=== PATIENT | male | born 1950 | race Caucasian/White ===

== ENCOUNTER 2017-08-14 13:26 | Emergency (ER) | payer MEDICARE, BC ==
[2017-08-14 13:39] VITALS: BP 161/65; PULSE 75; RESP 18; TEMP 98.3; O2SAT 99
[2017-08-14 14:11] LABS: APPEARANCE,URINE CLOUDY; COLOR,URINE RED
[2017-08-14 14:12] LABS: BILIRUBIN,URINE 2+ (NEGATIVE); GLUCOSE, URINE (UA) NEGATIVE (NEGATIVE); KETONES,URINE 1+ (NEGATIVE); LEUKOCYTE ESTERASE ,URINE 1+ (NEGATIVE); NITRATE,URINE NEGATIVE (NEGATIVE); OCCULT BLOOD,URINE 3+ (NEG-TRACE); RBC,URINE TNTC (0-3AV/HPF); UROBILINOGEN,URINE NORMAL (0.2-1.0 EU)
[2017-08-14 14:16] LABS: ICTOTEST,URINE NEGATIVE (NEGATIVE)
== END 2017-08-14 14:57 | disposition home or self-care (01) | DRG 696 ==
LOC: ED 13:26
DX: R31.0 Gross hematuria (principal); R30.0 Dysuria
CPT/HCPCS: 81001; 99282

== ENCOUNTER 2018-02-20 18:26 | Observation (INO) | payer MEDICARE, BC ==
[2018-02-20] MEDS ORDERED: LIDOCAINE HCL 2% GEL TOP ONE (22:04)
[2018-02-20] MEDS ORDERED: LIDOCAINE HCL 2% (VISCOUS) 20 ML SOL MT ONE (22:04)
[2018-02-20] MEDS ORDERED: LIDOCAINE HCL 2% (VISCOUS) 20 ML SOL ONE (22:05)
[2018-02-20] MEDS ORDERED: TADALAFIL 20 MG PO PRN (22:51)
[2018-02-20] MEDS ORDERED: OXYBUTYNIN CHLORIDE 5 MG TAB PO ONE (23:00)
[2018-02-20] MEDS ORDERED: SODIUM CHLORIDE 0.9% FLUSH 10 ML SOL IV SCH (23:00)
[2018-02-21 00:28] VITALS: TEMP 98.3
[2018-02-21 08:45] VITALS: BP 155/100; PULSE 112; RESP 20; O2SAT 96
[2018-02-21] MEDS ORDERED: OXYBUTYNIN CHLORIDE 5 MG TAB PO SCH (09:00)
[2018-02-21] MEDS ORDERED: SIMVASTATIN 20 MG PO SCH (21:00)
== END 2018-02-21 08:55 | disposition short-term general hospital (02) | DRG 696 ==
LOC: ED 18:26 → ACUTE CARE 22:39
PROVIDERS: ADMIT Emergency Medicine; ATTEND Emergency Medicine
DX: R31.9 Hematuria, unspecified (principal); N40.0 Benign prostatic hyperplasia without lower urinary tract symptoms
CPT/HCPCS: 36415; 85018; 99219; 99224; 99282; A9270-GY